=== PATIENT | male | born 1970 | race Asian ===

== ENCOUNTER 2019-08-04 07:21 | Day surgery (SDC) | payer OTHER ==
[~2019-08-04 07:21] MED LIST: LACTATED RINGERS 1,000 ML IV ONE
[2019-08-04] MEDS ORDERED: NEOSTIGMINE 1 MG/1 ML 10 ML MDV IVP ONE (07:22)
[2019-08-04] MEDS ORDERED: GLYCOPYRROLATE 1 MG/5 ML VIAL IVP ONE (07:22)
[2019-08-04] MEDS ORDERED: DEXAMETHASONE 10 MG/ML VIAL IVP ONE (07:22)
[2019-08-04] MEDS ORDERED: ONDANSETRON 4 MG/2 ML VIAL IVP ONE (07:22)
[2019-08-04] MEDS ORDERED: fentaNYL 100 MCG/2 ML VIAL IVP ONE (07:22)
[2019-08-04] MEDS ORDERED: PROPOFOL 200 MG/20 ML VIAL IVP ONE (07:22)
[2019-08-04] MEDS ORDERED: LIDOCAINE-MPF 2% 5 ML VIAL IM ONE (07:22)
[2019-08-04] MEDS ORDERED: SEVOFLURANE 250 ML LIQUID INH ONE (07:22)
[2019-08-04] MEDS ORDERED: CEFAZOLIN SODIUM IN 0.9 % NACL 2 GM/100 ML BAG IV ONE (07:47)
--- NOTE | 2019-08-04 08:43 | ANESTHESIA ---
Pre-Anesthesia VS, & Labs - Diagnosis Umbilical hernia - Procedure Umbilical hernia repair Vital Signs: Temp Pulse Resp BP Pulse Ox 36.2 C L 85 15 120/88 H 99 08/04/19 07:39 08/04/19 07:39 08/04/19 07:39 08/04/19 07:39 08/04/19 07:39 Height 5 ft 7 in Weight (kg) 86 kg - NPO Last Fluid Intake: 4oz coffee at 0510 Home Medications and Allergies Home Medications: Ambulatory Orders No Known Home Medications 07/29/19 No Known Home Medications 07/29/19 Allergies/Adverse Reactions: Allergies Allergy/AdvReac Type Severity Reaction Status Date / Time ibuprofen [From Motrin] Allergy Hives Verified 07/29/19 08:11 Anes History & Medical History - Anesthetic History Family history of Anesthesia Complications: Denies Family history of Malignant Hyperthermia: Denies - Medical History Cardiovascular: reports: High cholesterol Pulmonary: reports: Asthma (last used inhalor 3mo ago) Gastrointestinal: reports: Hemorrhoids Urinary: reports: None Neuro: reports: None Musculoskeletal: reports: Gout, Chronic back pain Endocrine/Autoimmune: reports: None Blood Disorders: reports: None Skin: reports: None Smoking Status: Current every day smoker (1/2 pack per day for 25 years) Psychosocial: reports: Alcohol (occasional use.) - Surgical History General: Colonoscopy Results - EKG Results EKG Comparison: Reviewed EKG Exam General: Alert, Oriented x3, Cooperative, No acute distress Dental: WNL Mouth Openin Fingerbreadth Neck Mobility: Normal Mallampati classification: I Thyromental Distance: greater than 6 cm Respiratory: Lungs clear, Normal breath sounds, No respiratory distress, No accessory muscle use Cardiovascular: Regular rate, Normal S1, Normal S2, No murmurs Mental/Cognitive Status: Alert/Oriented X3, Normal for patient Plan Anesthesia Type: General Consent for Procedure(s) Verified and Reviewed: Yes Code Status: Attempt Resuscitation ASA classification: 2-Mild systemic disease Is this case an emergency?: No
[2019-08-04] MEDS ORDERED: BUPIVACAINE 0.5% PF 30 ML VIAL ONE (09:26)
[2019-08-04] MEDS ORDERED: LIDOCAINE 1%-EPI 1:100000 20 ML MDV ONE (09:26)
[2019-08-04] MEDS ORDERED: ceFAZolin 1 GM VIAL ONE (09:31)
--- NOTE | 2019-08-04 09:32 | MISCELLANEOUS PROVIDER NOTE ---
Miscellaneous Provider Note - - Note: Re: Holden Vasquez To whom it may concern: Mr. Vasquez is admitted to the hospital today for umbilical hernia repair. He will need a single period of recovery lasting 3 weeks. He will also have a 15 pound lifting restriction for the next 6 weeks. Please feel free to contact me if additional information is required. Thank you, Jayshree Laurent
[2019-08-04] MEDS ORDERED: LIDOCAINE 1%-EPI 1:100000 20 ML MDV SUBQ ONE ×2 (10:24)
[2019-08-04] MEDS ORDERED: BUPIVACAINE 0.5% PF 30 ML VIAL INFIL ONE ×2 (10:26)
[2019-08-04] MEDS ORDERED: ceFAZolin 1 GM VIAL IR ONE (10:26)
[2019-08-04] MEDS ORDERED: oxyCODONE 5 MG TABLET PO PRN (10:35)
[2019-08-04] MEDS ORDERED: ACETAMINOPHEN 325 MG TABLET PO PRN (10:35)
[2019-08-04] MEDS ORDERED: ONDANSETRON 4 MG/2 ML VIAL IVP PRN (10:35)
--- NOTE | 2019-08-04 10:35 | OPERATIVE REPORT ---
Operative Report - General Procedure Date: 08/04/19 Planned Procedure: Umbilical Hernia Repair Pre-Op Diagnosis: Umbilical Hernia - Incarcerated Procedure Performed: Umbilical Hernia Repair Post Op Diagnosis: Umbilical Hernia Repair - Incarcerated hernia - Procedure Note Primary Surgeon: Mehran Anesthesia Provider: ADIA Lindo Anesthesia Technique: General LMA Pathology: None Estimated Blood Loss (mL): 10 Findings: 1.5 cm incarcerated umbilical hernia Complications: None apparent - Other Other Information/Narrative: After obtaining informed consent, the patient is brought to the operating room and placed in the supine position on the operating. Following successful induction of general anesthesia, appropriate padding of all bony prominences, and placement of appropriate monitors, the abdomen was prepped and draped in the standard surgical fashion. A timeout was held per scope protocol. All elements of the surgical safety checklist were followed before, during, and after the procedure. Following infiltration with local anesthetic to create a field block, an incision was created directly through the umbilicus and carried through the skin and subcutaneous tissue. The contents of the hernia sac were carefully dissected free from the overlying dermis. The defect was then carefully defined allowing the contents of the sac to retract back into the abdominal cavity. The defect itself was approximately 1.5 cm in greatest dimension and contained preperitoneal fat. We elected to repair this defect using a medium sized ventral Ja patch. This was dipped into Ancef containing solution and deployed into the defect. The overlying leaflets were then sewn to the fascia with interrupted Vicryl sutures. The wound was irrigated with warm saline solution containing Ancef. It was aspirated free of all fluid and particulate matter and checked once again for hemostasis. The incision was then closed in 2 layers with Vicryl and Monocryl suture and Dermabond was applied to the skin incision. All sponge, needle, and instrument counts were correct at the conclusion of the case. The patient was allowed awaken from anesthesia without difficulty and taken to the postanesthesia care unit in good condition.
[2019-08-04] MEDS ORDERED: ACETAMINOPHEN 1,000 MG/100 ML 100 ML IV ONE (10:56)
[2019-08-04] MEDS: fentaNYL 100 MCG/2 ML VIAL ONE ×2 (11:07→11:12)
[2019-08-04] MEDS ORDERED: LACTATED RINGERS 1,000 ML IV ONE (11:19)
[2019-08-04 11:55] VITALS: BP 97/80
== END 2019-08-04 07:22 | disposition home or self-care (01) ==
LOC: SDS 07:21
PROVIDERS: ATTEND Surgery
PROC: 0WUF0JZ Supplement Abdominal Wall with Synthetic Substitute, Open Approach (ICD-10-PCS; principal; 2019-08-04 08:45)
DX: K42.0 Umbilical hernia with obstruction, without gangrene (principal); E11.9 Type 2 diabetes mellitus without complications; F17.210 Nicotine dependence, cigarettes, uncomplicated; J45.909 Unspecified asthma, uncomplicated
CPT/HCPCS: 49585; A9270; C1781; J0131; J0690; J3490; J7120

== ENCOUNTER 2019-09-04 10:47 | Day surgery (SDC) | payer OTHER ==
[2019-09-04] MEDS ORDERED: LACTATED RINGERS 1,000 ML IV ONE (11:03)
--- NOTE | 2019-09-04 11:45 | ANESTHESIA ---
Pre-Anesthesia VS, & Labs - Diagnosis Prolapsed internal hemorrhoids, rectal bleeding - Procedure Colonscopy, hemorrhoid banding Vital Signs: Temp Pulse Resp BP Pulse Ox 36.3 C L 70 16 105/76 99 09/04/19 11:09 09/04/19 11:09 09/04/19 11:09 09/04/19 11:09 09/04/19 11:09 Height 5 ft 7 in Weight (kg) 85 kg - NPO >8 hours (Water at 0700) Home Medications and Allergies Home Medications: Ambulatory Orders oxyCODONE [Roxicodone] 5 mg PO Q4HR 09/04/19 oxyCODONE [Roxicodone] 5 mg PO Q4HR 09/04/19 Allergies/Adverse Reactions: Allergies Allergy/AdvReac Type Severity Reaction Status Date / Time ibuprofen [From Motrin] Allergy Hives Verified 09/04/19 11:17 Anes History & Medical History - Anesthetic History Anesthesia Complications: reports: No previous complications Family history of Anesthesia Complications: Denies Family history of Malignant Hyperthermia: Denies - Medical History Cardiovascular: reports: High cholesterol Pulmonary: reports: Asthma Gastrointestinal: reports: Hemorrhoids Urinary: reports: None Neuro: reports: None Musculoskeletal: reports: Gout, Chronic back pain Endocrine/Autoimmune: reports: None Blood Disorders: reports: None Skin: reports: None Smoking Status: Current every day smoker (1/2 pack per day for 25 years) Psychosocial: reports: No issues indicated - Surgical History General: Colonoscopy, Other Exam Dental: Partials Upper Mouth Opening: Greater than 4 Fingerbreadths Neck Mobility: Normal Mallampati classification: I Thyromental Distance: greater than 6 cm Plan Anesthesia Type: Total IV Consent for Procedure(s) Verified and Reviewed: Yes Code Status: Attempt Resuscitation ASA classification: 2-Mild systemic disease Is this case an emergency?: No
[2019-09-04] MEDS ORDERED: PROPOFOL 200 MG/20 ML VIAL IVP ONE (12:46)
[2019-09-04] MEDS ORDERED: fentaNYL 100 MCG/2 ML VIAL IVP ONE (12:46)
[2019-09-04] MEDS ORDERED: MIDAZOLAM 2 MG/2 ML VIAL IVP ONE (12:46)
[2019-09-04] MEDS ORDERED: LIDOCAINE-MPF 2% 5 ML VIAL IM ONE (12:46)
[2019-09-04] MEDS ORDERED: ePHEDrine 50 MG/ML VIAL IVP ONE (12:46)
[2019-09-04] MEDS ORDERED: LIDOCAINE 1%-EPI 1:100000 20 ML MDV ONE (12:56)
[2019-09-04] MEDS ORDERED: LIDOCAINE 1%-EPI 1:100000 30 ML MDV SUBQ ONE ×2 (12:57)
--- NOTE | 2019-09-04 13:20 | OPERATIVE REPORT ---
Operative Report - General Procedure Date: 09/04/19 Planned Procedure: Incision and drainage of thrombosed external hemorrhoid Pre-Op Diagnosis: Thrombosed external hemorrhoid Procedure Performed: Incision and drainage of thrombosed external hemorrhoid Post Op Diagnosis: Thrombosed external hemorrhoid - Procedure Note Primary Surgeon: Mehran Anesthesia Provider: ADIA Pena Anesthesia Technique: Local, MAC Estimated Blood Loss (mL): 2 Indications: Painful thrombosed external hemorrhoid Findings: 3 x 3 cm thrombosed external hemorrhoid. Complications: None apparent - Other Other Information/Narrative: After obtaining informed consent, the patient was placed in the left lower decubitus position on the examination table. A timeout was held per scope protocol. The colonoscopy was completed and has been been dictated in a separate report.Once the colonoscopy was completed, the anal region was prepped and draped in the standard surgical fashion. The area over the thrombosed external hemorrhoid was infiltrated with a mixture of local anesthetics to create a field block. It was noted to be in the 5:00 radian in lithotomy position. It measured 3 x 3 cm. A 15 blade scalpel was used to make an incision directly through the center of the hemorrhoid and a large clot was evacuated. The wound was then checked for hemostasis and dressed with dry gauze. All sponge, needle, and instrument counts were correct at the conclusion of the case. The patient was allowed awaken from sedation without difficulty and taken back to outpatient in good condition.
[2019-09-04 14:16] VITALS: BP 110/62
== END 2019-09-04 10:48 | disposition home or self-care (01) ==
LOC: SDS 10:47
PROVIDERS: ATTEND Surgery
PROC: 0DBN8ZZ Excision of Sigmoid Colon, Via Natural or Artificial Opening Endoscopic (ICD-10-PCS; principal; 2019-09-04 12:45)
PROC: 0D9Q3ZZ Drainage of Anus, Percutaneous Approach (ICD-10-PCS; 2019-09-04 12:45)
DX: K62.5 Hemorrhage of anus and rectum (principal); K64.8 Other hemorrhoids; K64.5 Perianal venous thrombosis; K63.5 Polyp of colon; J45.909 Unspecified asthma, uncomplicated; F17.210 Nicotine dependence, cigarettes, uncomplicated
CPT/HCPCS: 45380; 46083; J7120

== ENCOUNTER 2019-12-30 15:27 | Outpatient (CLI) | payer OTHER ==
--- NOTE | 2019-12-30 16:09 | SLEEP CARE CONSULTATION ---
Information from patient questionnaire entered by Neeta Castellon. I have reviewed and concur with the information entered by Neeta Castellon. This document represents the service I personally performed and the decisions made by me, Reji Hoskins MD, [facility]. History of Present Illness Service Date and Time: 12/30/2019 1527 Reason for Visit: New patient Chief Complaint: reports: Unrefreshed sleep, Snoring Duration of Symptoms: since active [employer] Usual bedtime: 8:30-9:30 pm Time it takes to fall asleep: 1-2 hours Snores at night: Yes Sleeps alone due to snoring: No Number of times waking at night: 2-3 Reasons for waking at night: reports: Gasping for air, Bathroom Toss, Turn, or Twitch while sleeping: Yes Recalls having dreams: Yes Usually gets out of bed at: 2:30 am Feels refreshed in the morning: No Morning headache: Yes (sometimes) Sleepy or fatigued during the day: Yes Ever fallen asleep while driving: Yes Takes day naps: No Dreams during day naps: Yes (sometimes) Prior sleep studies: Yes Year and Where: 2011 or 2012 , [place] facility Additional HPI information: The patient complains of waking up choking at night. He had a sleep study at the [facility] that was negative. He snores loudly at night and has never been witnessed to stop breathing. During the day, he is very sleepy. The [place] Sleepiness Scale Score is 20. However, he used to have to get up at 2:30 am to commute to work. Presently, he is laid off because of the COVID-19 pandemic. 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 Patient is and lives in [place]. Have you smoked in the past 12 months: Yes Cigarettes per day (20/pack): 10 Years of smokin Smoking Pack Years: 10.0 Alcohol use: Yes Alcohol amount and frequency: occasionally Caffeine use: Yes Caffeine amount and frequency: 2 cups daily Family History Family history of sleep disordered breathing: Yes Allergies and Home Medications Drug allergies reviewed: Yes Home medication list reviewed: Yes Review of Systems Weight gain over past 5 years: 27 Weight loss over past 5 years: 3-4 Cardiovascular: reports: palpitations, irregular heart rate or pulse, leg or foot swelling Respiratory: reports: shortness of breath, wheeze Gastrointestinal: reports: difficulty swallowing (at night) Urinary: reports: urgency Neurological: denies: headaches, seizure, head trauma, disorientation, speech dysfunction, gait or balance problems, fainting or unconsciousness, other Ear/Nose/Throat: reports: dry mouth/throat Endocrine: reports: increased urination Musculoskeletal: reports: joint pain, neck pain, back pain, joint swelling, muscle pain or cramping, mobility problems Immunologic: reports: sneezing, rash, itching Physical Exam Vital signs obtained and entered by: Physical exam is deferred to minimize the COVID-19 risk. Impression and Plan IMPRESSION: 1. Obstructive Sleep Apnea-Hypopnea Syndrome, as suggested by history of loud snoring, unrefreshed sleep, cognitive impairment, and daytime hypersomnolence. Narrow oropharynx and obesity are common predisposing factors for obstructive sleep apnea-hypopnea syndrome. Pathophysiology of sleep-disordered breathing was discussed. I recommend proceeding to polysomnography to confirm the diagnosis and to assess severity. If he has significant sleep disordered breathing, a manual CPAP titration study will also be performed to find the optimal treatment pressure. I informed the patient of what the sleep studies involve and after some discussion, he agreed to proceed. Plan: 1. Schedule an in-laboratory polysomnography + manual CPAP titration study 2. Avoid long distance driving or when feeling sleepy. 3. Avoid alcohol, sedative and muscle relaxant around bedtime. 4. Attempt to lose weight. 5. Return in 1 to 2 weeks after the study to discuss results and initiate therapy. Visit Type: In Office Time Spent with Patient (minutes): 15 Provider Statement: I spent 100% of the Face to Face Visit with the patient with greater than 50% spent counseling the patient and coordination of care.
== END 2019-12-30 15:28 | disposition home or self-care (01) ==
LOC: MERGE 15:27 → SC 15:27
PROVIDERS: ATTEND Internal Medicine Pulmonary Disease
DX: R06.83 Snoring (principal); G47.8 Other sleep disorders; G47.10 Hypersomnia, unspecified; R53.83 Other fatigue; F17.210 Nicotine dependence, cigarettes, uncomplicated
CPT/HCPCS: 99203; 99212

== ENCOUNTER 2020-01-21 20:36 | Outpatient (CLI) | payer OTHER | END 2020-01-21 20:37 | disposition home or self-care (01) | LOC: SC 20:36 | PROVIDERS: ATTEND Internal Medicine Pulmonary Disease | DX: G47.33 Obstructive sleep apnea (adult) (pediatric) (principal) | CPT/HCPCS: 95810 ==